=== PATIENT | male | born 1975 ===

== ENCOUNTER 2020-05-27 09:48 | Outpatient (REF) | payer OTHER, SELFPAY | END 2020-05-27 09:49 | disposition home or self-care (01) | LOC: HO.LAB 09:48 | PROVIDERS: Visit Provider Internal Medicine | DX: Z20.828 Contact with and (suspected) exposure to other viral communicable diseases (principal) | CPT/HCPCS: 87635 ==

== ENCOUNTER 2020-08-18 15:14 | Outpatient (REF) | payer OTHER, SELFPAY | END 2020-08-18 15:15 | disposition home or self-care (01) | LOC: HO.LAB 15:14 | PROVIDERS: Visit Provider Internal Medicine | DX: Z20.822 Contact with and (suspected) exposure to COVID-19 (principal) | CPT/HCPCS: 36415; C9803; U0003 ==

== ENCOUNTER 2024-07-25 09:18 | Emergency (ER) | payer OTHER, SELFPAY ==
--- NOTE | ~2024-07-25 | XR_ITS ---
EXAMINATION: XR CHEST CLINICAL INFORMATION: Chest pain COMPARISON: None available. TECHNIQUE: Frontal view of the chest was obtained in the lordotic projection. FINDINGS: Heart size probably within normal limits given technique. No significant abnormality is noted involving the heart, lungs, mediastinum, bony thorax or soft tissues. Degenerative changes are again seen in the spine. XR/XR chest 1V IMPRESSION: Unremarkable examination. Electronically signed by: Donnie Kaye MD 07/25/2024 10:39 AM [facility]
--- NOTE | 2024-07-25 09:19 | ECG_ITS ---
Test Reason : cp Blood Pressure : / mmHG Vent. Rate : 078 BPM Atrial Rate : 078 BPM P-R Int : 138 ms QRS Dur : 098 ms QT Int : 360 ms P-R-T Axes : 025 -14 047 degrees QTc Int : 410 ms Normal sinus rhythm Minimal voltage criteria for LVH, may be normal variant ( R in aVL ) Borderline ECG When compared with ECG of 11-NOV-2016 11:07, T wave inversion no longer evident in Inferior leads Referred By: Generic ED Physician Electronically Signed By:Robert Larsen
--- NOTE | 2024-07-25 09:39 | ECG_ITS ---
Test Reason : CHEST PAIN/REPEAT Blood Pressure : / mmHG Vent. Rate : 065 BPM Atrial Rate : 065 BPM P-R Int : 150 ms QRS Dur : 100 ms QT Int : 392 ms P-R-T Axes : 017 -21 017 degrees QTc Int : 407 ms Normal sinus rhythm Minimal voltage criteria for LVH, may be normal variant ( R in aVL ) Borderline ECG When compared with ECG of 25-JUL-2024 09:24, No significant change was found Referred By: Renu Tsang Electronically Signed By:Robert Larsen
--- NOTE | 2024-07-25 09:58 | ED.CHESTPAIN ---
HPI - Chest Pain General Chief Complaint: Chest Pain Stated Complaint: chest pain Time Seen by Provider: 07/25/24 09:57 Source: patient, RN notes reviewed and old records reviewed Mode of arrival: ambulatory History of Present Illness ED Provider: Renu Tsang PA-C HPI narrative: 49-year-old male with no significant past medical history presenting to the ED complaining of chest pain/pressure since 06:00AM while sitting at work. Reports pain has been constant since onset with associated nausea, lightheadedness, and SOB. Denies cough, fever, chills, recent illness, travel, pedal edema, calf tenderness, history of clots, abdominal pain, vomiting Related Data Allergies Allergy/AdvReac Type Severity Reaction Status Date / Time No Known Allergies Allergy Unverified 07/25/24 10:04 [No Known Allergies*] Review of Systems Review of Systems: Yes all other systems are reviewed and are negative Constitutional: Constitutional: Reports as per [facility] Past Medical History Attestation statement: The following information was validated with the patient. Source: old records reviewed Social History Social History Smoked in Last 30 Days: No Use of substances other than those prescribed or required for medical reasons: No Advance Directives: No Physical Exam Vital Signs: Vital Signs: Last Vital Signs Temp 98.6 F 07/25/24 14:06 Pulse 63 07/25/24 14:06 Resp 16 07/25/24 14:06 BP 116/70 07/25/24 14:06 Pulse Ox 96 07/25/24 14:06 O2 Del Method Room Air 07/25/24 14:06 BMI result Body Mass Index 43.3 Const: General: cooperative, healthy appearing and no acute distress Orientation/consciousness: patient oriented x3 Limitations: no limitations HEENT: Head: Yes normal to inspection and Yes atraumatic Ears: hearing grossly normal bilaterally General nose exam: Normal external nose present Face and sinus: Yes normal facial exam Eyes: General: appearance normal, both eyes and all related structures EOM: EOMs intact bilaterally Neck: Neck: Yes normal visual inspection and Yes no meningeal signs Chest: Other: no flail chest Chest palpation & inspection: normal inspection of the chest, no crepitus and tenderness (Chest pain slightly reproducible to left chest wall palpation. No crepitus) Resp: Effort & Inspection: normal respiratory effort and no respiratory distress Auscultation: clear to auscultation bilaterally Cardio: Rate: regular rate Heart sounds: S1 normal heart sound present and S2 normal heart sound present GI: Inspection: Yes normal to inspection Palpation (GI): Soft to palpation, nontender, no guarding and not rigid Skin: Rashes: no rashes Wounds: no wounds Neuro: General: patient oriented x3, tone normal and no meningeal signs Cranial nerves: Yes CN's II-XII intact bilaterally Gait exam (Neuro): Normal gait present Extrem: General: Yes normal to inspection Course Course Course Narrative: -1120--no leukocytosis. Labs otherwise reassuring. Initial troponin negative > will obtain repeat XR chest 1V IMPRESSION: Unremarkable examination. -1346--troponin x2 negative. Mi unlikely. Patient reports symptomatic improvement -COVID/flu/RSV negative Results discussed with patient including worrisome signs and symptoms and strict return precautions, and when to return to the emergency department. They verbalized understanding and feel safe for discharge at this time. Medications Administered Discontinued Medications Generic Name Dose Route Start Last Admin Trade Name Alfredo PRN Reason Stop Dose Admin Aspirin 325 mg 07/25/24 10:09 07/25/24 10:30 Aspirin Enteric Coated 325 Mg Tablet.Dr PO 07/25/24 10:10 325 mg ONCE ONE Administration Morphine Sulfate 2 mg 07/25/24 10:09 07/25/24 10:34 Morphine Sulfate 2 Mg/Ml Cartridge IVPUSH 07/25/24 10:10 2 mg ONCE ONE Administration Protocol Ondansetron HCl 4 mg 07/25/24 10:10 07/25/24 10:31 Ondansetron Hcl 4 Mg/2 Ml Vial IVPUSH 07/25/24 10:11 4 mg ONCE ONE Administration Medical Decision Making Medical Decision Making [facility] Narrative: 49-year-old male with no significant past medical history presenting to the ED complaining of chest pain/pressure since 06:00AM while sitting at work. On exam vital signs stable, NAD, nontoxic appearing, testing slightly reproducible, lungs CTA, no pedal edema or calf tenderness. Concern for ACS vs costochondritis vs pneumonia. Lower suspicion for PE/DVT or dissection at this time. Lower suspicion for acute cholecystitis//pancreatitis Plan: EKG, labs, CXR, and viral studies, pain control, ASA/morphine, re-evaluate Please refer to course for remaining clinical decision making, interpretation of labs/imaging results, and discussions with consultants and/or family members. Differential Diagnosis Differential Diagnoses: The differential diagnosis associated with the presentation includes As above Admission/Observation Consideration of admission/observation: Escalation of care including admission/observation considered Lab Data MDM Lab Attestation statement: I reviewed the patient's lab results. 07/25/24 10:29 07/25/24 10:29 Labs: Lab Results 07/25/24 07/25/24 07/25/24 Range/Units 10:29 10:35 13:11 WBC 5.7 (4.8-10.8) X10*3/uL RBC 4.65 (4.60-5.80) X10*6/uL Hgb 13.4 L (14.0-18.0) g/dl Hct 40.8 L (42.0-52.0) % MCV 87.7 (80.0-98.0) fL MCH 28.8 (27.0-33.0) pg MCHC 32.8 (31.0-36.0) g/dl RDW 13.6 (11.0-16.0) % Plt Count 226 (160-400) X10*3/uL MPV 10.3 (9.4-12.4) fL Immature Gran % (Auto) 0.4 (0.0-0.4) % Neut % (Auto) 63.4 (45-73) % Lymph % (Auto) 26.2 (20-40) % [place] % (Auto) 7.4 (2-11) % Eos % (Auto) 2.1 (0-4) % Baso % (Auto) 0.5 (0-2) % Lymph # (Auto) 1.5 (1.2-4.9) X10*3/uL [place] # (Auto) 0.4 (0.1-1.2) X10*3/uL Eos # (Auto) 0.1 (0.0-0.4) X10*3/uL Baso # (Auto) 0.0 (0.0-0.2) X10*3/uL Abs Immat Gran (auto) 0.02 (0.00-0.03) X10*3/uL Absolute Neuts (auto) 3.6 (2.0-8.3) x10*3/uL Absolute Nucleated RBC 0.000 (0.0-0.012) X10*3/uL Nucleated RBC % (auto) 0.0 (0.0-0.2) /100WBC PT 11.1 (10.9-12.4) SEC INR 1.0 (0.9-1.1) Sodium 137 (135-145) mmol/L Potassium 4.3 (3.3-5.1) mmol/L Chloride 103 (96-108) mmol/L Carbon Dioxide 26 (22-29) mmol/L Anion Gap 12 (12-20) BUN 10 (9-16) mg/dL Creatinine 0.88 (0.5-1.4) mg/dL Estim Creat Clear Calc 141.4 Estimated GFR > 60 Random Glucose 121 H (60-115) mg/dL Calcium 9.0 (8.4-10.2) mg/dL Magnesium 1.9 (1.6-2.6) mg/dL Total Bilirubin 0.4 (0.0-1.0) mg/dL Direct Bilirubin 0.1 (0.0-0.5) mg/dL AST 34 (5-37) U/L ALT 36 (0-40) U/L Alkaline Phosphatase 54 (39-117) U/L Troponin I High Sens < 2.7 < 2.7 (<3.5-35.0) ng/L Total Protein 7.3 (6.5-8.0) g/dL Albumin 4.1 (3.5-5.0) g/dL Influenza Type A (PCR) NEGATIVE (Negative) Influenza Type B (PCR) NEGATIVE (Negative) RSV RNA Qual (PCR) NEGATIVE (Negative) SARS-CoV-2 RNA (RT-PCR) NEGATIVE (Negative) Independent Interpretation I performed an independent interpretation of an: EKG (My interpretation EKG normal sinus rhythm rate of 78. MN interval 138. QTC 410. T-wave inversion no longer evident in inferior leads. No STEMI) and Plain X-Ray Radiology Impression Discussion of test interpretation with radiology: I have reviewed the radiologist's reading. Independent Historian Clinical information obtained from an independent historian. History obtained from or confirmed by: Spouse External Record Review External record reviewed: Inpatient record, Office record, Outpatient record, Prior outpatient labs, Prior outpatient radiology, Primary care record and Outside ED record Tests considered The following testing was considered but not selected: As above Prescription Management I considered prescription management with: Other Chronic Conditions Patient?s care impacted by: Other Social Determinants Patient?s care significantly limited by Social Determinants of Health including: Other Social Determinant of Health Discharge Plan Discharge Clinical Impression: Chest pain Patient Disposition: Home, Self-Care Instructions: Chest Pain (DC) Additional Instructions: Your blood work, chest x-ray, and viral studies are reassuring Please have close follow-up with your doctor as well as Cardiology If your symptoms persist or worsen, you have constant worsening chest pain, shortness of breath, swelling in her legs or fever return to the ED Referrals: [facility] [Provider Group] - 1 week Cuauhtemoc Puente III, MD [Primary Care Provider] - Interventions: ED Discharge Assessment Last Done: 07/25/24 14:06 Discharge Date/Time: 07/25/24 14:07 Print Language: Sami
[2024-07-25 10:02] VITALS: BP 131/85; PULSE 77; RESP 15; TEMP 36.9; O2SAT 98; BMI 43.3
[2024-07-25] MEDS: Aspirin Enteric Coated 325 MG TABLET.DR PO (10:30)
[2024-07-25] MEDS: ondansetron HCL 4 MG/2 ML VIAL IVPUSH (10:31)
[2024-07-25 10:33] LABS: MANUAL DIFF FLAG NO
[2024-07-25 10:34] VITALS: RESP 18
[2024-07-25] MEDS: Morphine Sulfate 2 MG/ML CARTRIDGE IVPUSH (10:34)
[2024-07-25 10:37] VITALS: BP 144/90; PULSE 66; RESP 16; O2SAT 99
[2024-07-25 10:38] LABS: Prothrombin Time 11.1 SEC (10.9-12.4)
[2024-07-25 10:45] LABS: Basophils Percent Auto 0.5 % (0-2); Eosinophils Absolute Auto 0.1 X10*3/uL (0.0-0.4); Eosinophils Percent Auto 2.1 % (0-4); Hematocrit 40.8 % (42.0-52.0); Hemoglobin 13.4 g/dl (14.0-18.0); Imm Gran Abs Auto 0.02 X10*3/uL (0.00-0.03); Imm Gran Pct Auto 0.4 % (0.0-0.4); Lymphocytes Absolute Auto 1.5 X10*3/uL (1.2-4.9); Lymphocytes Percent Auto 26.2 % (20-40); Mean Corpuscular HGB Conc 32.8 g/dl (31.0-36.0); Mean Corpuscular Hemoglobin 28.8 pg (27.0-33.0); Mean Corpuscular Volume 87.7 fL (80.0-98.0); Mean Platelet Volume 10.3 fL (9.4-12.4); Monocytes Absolute Auto 0.4 X10*3/uL (0.1-1.2); Monocytes Percent Auto 7.4 % (2-11); Neutrophils Absolute Auto 3.6 x10*3/uL (2.0-8.3); Neutrophils Percent Auto 63.4 % (45-73); Platelet Count 226 X10*3/uL (160-400); Red Blood Count 4.65 X10*6/uL (4.60-5.80); Red Cell Distribution Width 13.6 % (11.0-16.0); White Blood Count 5.7 X10*3/uL (4.8-10.8)
[2024-07-25 10:56] LABS: Albumin Level 4.1 g/dL (3.5-5.0); Anion Gap 12 (12-20); Aspartate Amino Transferase 34 U/L (5-37); Bilirubin Direct 0.1 mg/dL (0.0-0.5); Bilirubin Total 0.4 mg/dL (0.0-1.0); Blood Urea Nitrogen 10 mg/dL (9-16); Carbon Dioxide 26 mmol/L (22-29); Chloride 103 mmol/L (96-108); Creatinine Clr Calc Pharmacy 141.4; Estimated Glomerular Filt Rate > 60; Glucose Random 121 mg/dL (60-115); Magnesium 1.9 mg/dL (1.6-2.6); Potassium 4.3 mmol/L (3.3-5.1); Sodium 137 mmol/L (135-145); Total Protein 7.3 g/dL (6.5-8.0)
[2024-07-25 11:07] LABS: Troponin-I High Sensitivity < 2.7 ng/L (<3.5-35.0)
[2024-07-25 11:21] LABS: Influenza A PCR NEGATIVE (Negative); Influenza B PCR NEGATIVE (Negative); Resp Syncy Virus RNA Qual PCR NEGATIVE (Negative); SARS COV2 PCR INHOUSE NEGATIVE (Negative)
[2024-07-25 11:58] LABS: Alanine Aminotransferase 36 U/L (0-40); Alkaline Phosphatase 54 U/L (39-117)
[2024-07-25 12:47] VITALS: BP 112/68; PULSE 68; RESP 16; TEMP 36.4; O2SAT 98
[2024-07-25 13:41] LABS: Troponin-I High Sensitivity < 2.7 ng/L (<3.5-35.0)
[2024-07-25 14:06] VITALS: BP 116/70; PULSE 63; RESP 16; TEMP 37; O2SAT 96
== END 2024-07-25 14:07 | disposition home or self-care (01) ==
PROVIDERS: Physician Assistant; Emergency Provider Emergency Medicine; PCP Internal Medicine
DX: R07.9 Chest pain, unspecified (principal); R11.0 Nausea; R06.02 Shortness of breath; Z03.818 Encounter for observation for suspected exposure to other biological agents ruled out
CPT/HCPCS: 0241U; 36415; 71045; 80048; 80076; 83735; 84484; 85025; 85610; 93005; 96374; 96375; 99284; 99285; J2270; J2405

== ENCOUNTER → 2024-07-25 09:19 | Outpatient (BNV) | payer OTHER, SELFPAY | PROVIDERS: Emergency Provider Emergency Medicine; PCP Internal Medicine; Visit Provider Internal Medicine Cardiovascular Disease | DX: R07.9 Chest pain, unspecified (principal); R94.31 Abnormal electrocardiogram [ECG] [EKG] | CPT/HCPCS: 93010 ==